=== PATIENT | male | born 1950 | race Two or more races ===

== ENCOUNTER 2018-09-08 19:13 | Emergency (ER) | payer OTHER ==
[~2018-09-08] VITALS: Ht 162.6 cm; Wt 72.6 kg
[~2018-09-08 19:13] MED LIST: ASA81 MG; COZAAR25 MG
[2018-09-09] MEDS ORDERED: LEVSIN/SL0.125 MG SL (03:29)
== END 2018-09-09 03:38 | disposition home or self-care (01) ==
LOC: ER 19:13 → EDBD 19:42 → ER 19:42
DX: N28.9 Disorder of kidney and ureter, unspecified (principal); R10.84 Generalized abdominal pain

== ENCOUNTER 2020-02-02 11:47 | Emergency (ER) | payer OTHER ==
[~2020-02-02] VITALS: Ht 157.5 cm; Wt 73.5 kg
[~2020-02-02 11:47] MED LIST changes: +LEVSIN/SL0.125 MG SL
== END 2020-02-02 13:41 | disposition home or self-care (01) ==
LOC: ER 11:47
DX: S52.591A Other fractures of lower end of right radius, initial encounter for closed fracture (principal); W18.09XA Striking against other object with subsequent fall, initial encounter; Y93.89 Activity, other specified; Y92.018 Other place in single-family (private) house as the place of occurrence of the external cause; Y99.8 Other external cause status

== ENCOUNTER 2020-02-06 05:30 | Day surgery (SDC) | payer OTHER | END 2020-02-06 13:20 | disposition home or self-care (01) | LOC: CIR.AMB 05:30 | PROVIDERS: ATTEND Orthopaedic Surgery | DX: S52.571A Other intraarticular fracture of lower end of right radius, initial encounter for closed fracture (principal); S52.511A Displaced fracture of right radial styloid process, initial encounter for closed fracture; Z20.828 Contact with and (suspected) exposure to other viral communicable diseases | CPT/HCPCS: 20902; 25609; C1776 ==

== ENCOUNTER → 2020-03-04 | Outpatient (CLI) | payer OTHER | END | disposition home or self-care (01) | LOC: RAD 11:31 | PROVIDERS: ATTEND Orthopaedic Surgery | DX: M25.531 Pain in right wrist (principal); S52.531D Colles' fracture of right radius, subsequent encounter for closed fracture with routine healing ==

== ENCOUNTER → 2020-04-06 10:10 | Outpatient (CLI) | payer OTHER | END | disposition home or self-care (01) | LOC: LAB 10:10 | PROVIDERS: ATTEND Orthopaedic Surgery | DX: E56.1 Deficiency of vitamin K (principal); E88.89 Other specified metabolic disorders; E55.9 Vitamin D deficiency, unspecified; M85.88 Other specified disorders of bone density and structure, other site; E21.2 Other hyperparathyroidism; M81.8 Other osteoporosis without current pathological fracture ==

== ENCOUNTER → 2020-04-21 | Outpatient (CLI) | payer OTHER | END | disposition home or self-care (01) | LOC: NUCLEAR 12:00 | PROVIDERS: ATTEND Orthopaedic Surgery | DX: M81.0 Age-related osteoporosis without current pathological fracture (principal) ==

== ENCOUNTER → 2020-05-18 | Outpatient (CLI) | payer OTHER | END | disposition home or self-care (01) | LOC: RAD 07:24 | PROVIDERS: ATTEND Orthopaedic Surgery | DX: M19.031 Primary osteoarthritis, right wrist (principal); S52.531D Colles' fracture of right radius, subsequent encounter for closed fracture with routine healing ==

== ENCOUNTER 2021-04-12 08:54 | Outpatient (CLI) | payer OTHER | END 2021-04-12 15:00 | disposition home or self-care (01) | LOC: LAB 08:54 | PROVIDERS: ATTEND Orthopaedic Surgery | DX: E21.2 Other hyperparathyroidism (principal); E55.9 Vitamin D deficiency, unspecified; M85.88 Other specified disorders of bone density and structure, other site; E88.89 Other specified metabolic disorders; M81.8 Other osteoporosis without current pathological fracture; E56.1 Deficiency of vitamin K ==